=== PATIENT | female | born 1995 | race Native Hawaiian/Other Pacific Islander ===

== ENCOUNTER 2016-12-11 18:49 | Emergency (ER) | payer MEDICAID ==
[2016-12-11 21:18] LABS: Hematocrit 36.7 % (30.3-42.9); Hemoglobin 12.5 gm/dl (10.1-14.3); Mean Corpuscular HGB Conc 34 % (30-34); Mean Corpuscular Hemoglobin 30 pg (28-32); Mean Corpuscular Volume 90 fl (79-97); Platelet Count 218 K/mm3 (140-440); Red Cell Distribution Width 12.6 % (13.2-15.2); White Blood Count 11.8 K/mm3 (4.5-11.0)
[2016-12-11 21:19] LABS: Basophils % (Auto) 0.6 % (0.0-1.8); Eosinophils % (Auto) 1.6 % (0.0-4.3)
--- NOTE | 2016-12-11 22:35 | Emergency Department Report ---
HPI - General Chief Complaint: Abdominal Pain Time Seen by Provider: 12/11/16 22:21 - HPI HPI: Room 9 The pt is a 21 y/o F p/w a CC of Abd pain/ The pt is ~12 wks GA and states for ~ 2 weeks she's had intermittent pelvic cramping. The pt states approx 1 week ago she slipped and fell forward landing on her hands and knees. Pt states she did not strike her abdomen. Pt denies vag bleeding, vag d/c, dysuria or hematuria. Pt denies fever ED Past Medical Hx - Past Medical History Previous Medical History?: Yes Additional medical history: PANIC ATTACK - Surgical History Past Surgical History?: No - Family History Family history: no significant - Social History Smoking Status: Never Smoker Substance Use Type: None (denies illicit drug use) - Medications Home Medications: Home Medications Medication Instructions Recorded Confirmed Last Taken Type Hyoscyamine Subl [Levsin Sl] 0.125 mg SL Q4HR PRN #14 tablet 11/13/13 Unknown Rx Promethazine [Phenergan] 25 mg PO Q6H PRN #14 tablet 11/13/13 Unknown Rx ED Review of Systems ROS: Stated complaint: 12 WKS PREG/CRAMPING Other details as noted in HPI Comment: All other systems reviewed and negative Constitutional: denies: chills, fever Eyes: denies: eye pain, eye discharge, vision change ENT: denies: ear pain, throat pain Respiratory: denies: cough, shortness of breath, wheezing Cardiovascular: denies: chest pain, palpitations Endocrine: no symptoms reported Gastrointestinal: abdominal pain Genitourinary: denies: dysuria, hematuria, discharge, abnormal menses Musculoskeletal: denies: back pain, joint swelling, arthralgia Skin: denies: rash, lesions Neurological: denies: headache, weakness, paresthesias Psychiatric: denies: anxiety, depression Hematological/Lymphatic: denies: easy bleeding, easy bruising Physical Exam - Physical Exam Vital Signs: Vital Signs 12/11/16 19:30 Temperature 98.9 F Pulse Rate 91 H Respiratory 16 Rate Blood Pressure 116/72 O2 Sat by Pulse 99 Oximetry Physical Exam: GEN: WD, WN F lying on stretcher not appearing to be in acute distress. HEENT: normocephalic, atraumatic PULM: CTA B CV: rrr, no m/r/g ABD: s, with mild discomfort to palpation in the JOSE RAUL and SP region Neuro: GCS 15 Ext: no deformity ED Course Vital Signs 12/11/16 19:30 Temperature 98.9 F Pulse Rate 91 H Respiratory 16 Rate Blood Pressure 116/72 O2 Sat by Pulse 99 Oximetry ED Medical Decision Making - Lab Data Result diagrams: 12/11/16 21:01 Laboratory Tests 12/11/16 12/11/16 12/12/16 21:01 21:01 00:09 WBC 11.8 H RBC 4.10 Hgb 12.5 Hct 36.7 MCV 90 MCH 30 MCHC 34 RDW 12.6 L Plt Count 218 Lymph % (Auto) 28.0 [place] % (Auto) 6.9 Eos % (Auto) 1.6 Baso % (Auto) 0.6 Lymph # 3.3 [place] # 0.8 Eos # 0.2 Baso # 0.1 Seg Neutrophils % 62.9 Seg Neutrophils # 7.4 HCG, Quant 49325 H Urine Color Yellow Urine Turbidity Clear Urine pH 7.0 Ur Specific [place] 1.019 Urine Protein <15 mg/dl Urine Glucose (UA) Neg Urine Ketones Tr Urine Blood Neg Urine Nitrite Neg Urine Bilirubin Neg Urine Urobilinogen < 2.0 Ur Leukocyte Esterase Sm Urine WBC (Auto) 5.0 Urine RBC (Auto) 2.0 U Epithel Cells (Auto) 4.0 Urine Mucus Few - Radiology Data Radiology results: report reviewed (pelvic u/s), image reviewed (pelvic u/s) - Differential Diagnosis uti, subchorianic hem, Critical care attestation.: If time is entered above; I have spent that time in minutes in the direct care of this critically ill patient, excluding procedure time. ED Disposition Clinical Impression: Abdominal pain, Disposition: TO HOME OR SELFCARE Is pt being admited?: No Does the pt Need Aspirin: No Condition: Stable Instructions: Abdominal Pain (ED) Referrals: PRIMARY CARE, [Referring] - 3-5 Days Your Assistant Director, [facility] [Other] - 3-5 Days Time of Disposition: 01:38
--- NOTE | 2016-12-12 00:33 | Ultrasound Report ---
FINAL REPORT PROCEDURE: US OB \T\lt; = 14 WEEKS FETUS TECHNIQUE: Real-time transabdominal sonography of the uterus, placenta, amniotic fluid, adnexa, and fetus was performed with image documentation. Measurements were obtained to determine age/size. M-mode Doppler was used to document heartbeat. CPT 94937 HISTORY: Cramping, Recent fall COMPARISON: No prior studies are available for comparison. FINDINGS: CRL: 31 mm, which corresponds to a gestational age of: 10 weeks, 0 days. Yolk Sac: Normal. Embryonic Cardiac Activity: 152 beats per minute Gestational Sac: Normal. Amniotic fluid: Normal. Cervix: Normal. Right Ovary: Normal. Left Ovary: Normal. Estimated delivery date: 07/09/2017 Uterus and adnexa: Normal. IMPRESSION: Single live intrauterine gestation at approximately 10 weeks 0 days. EDC by US 07/09/2017
--- NOTE | 2016-12-12 00:37 | Ultrasound Report ---
FINAL REPORT PROCEDURE: Ultrasound obstetrical transabdominal and transvaginal TECHNIQUE: Real-time transabdominal and transvaginal sonography of the uterus, placenta, amniotic fluid, adnexa, and fetus was performed with image documentation. Measurements were obtained to determine age/size. M-mode Doppler was used to document heartbeat. CPT 46094VZ OB \T\lt; = 14 WEEKS FETUS Real-time transabdominal sonography of the uterus, placenta, amniotic fluid, adnexa, and fetus was performed with image documentation. Measurements were obtained to determine age/size. M-mode Doppler was used to document heartbeat. CPT 48443 HISTORY: Cramping, Recent fall COMPARISON: No prior studies are available for comparison. FINDINGS: CRL: 31 mm, which corresponds to a gestational age of: 10 weeks, 0 days. Yolk Sac: Normal. Embryonic Cardiac Activity: 152 beats per minute Gestational Sac: Normal. Amniotic fluid: Normal. Cervix: Normal. Right Ovary: Normal. Left Ovary: Normal. Estimated delivery date: 07/09/2017 Uterus and adnexa: Normal. IMPRESSION: Single live intrauterine gestation at approximately 10 weeks 0 days. EDC by US 07/09/2017
[2016-12-12 01:26] LABS: Bilirubin,Urine NEG (Negative); Blood,Urine NEG (Negative); Ketones,Urine TR mg/dL (Negative); Leukocyte Esterase,Urine SM (Negative); Mucus,Urine FEW /HPF; Nitrite,Urine NEG (Negative); Protein,Urine <15 mg/dL mg/dL (Negative); Urobilinogen,Urine < 2.0 mg/dL (<2.0)
[2016-12-12 01:52] VITALS: BP 96/56
== END 2016-12-12 01:52 | disposition home or self-care (01) ==
LOC: ED 18:49
DX: O26.891 Other specified pregnancy related conditions, first trimester (principal); R10.9 Unspecified abdominal pain; Z3A.12 12 weeks gestation of pregnancy
CPT/HCPCS: 36415; 76801; 76817; 81001; 84702; 85025

== ENCOUNTER 2017-06-10 21:07 | Inpatient (IN) | payer MEDICAID ==
[~2017-06-10 21:07] MED LIST: Fluarix Quad 2017-2018(36 MOS+ IM ONE
[2017-06-10] MEDS ORDERED: LACTATED RINGERS 1,000 ML ONE (22:05)
--- NOTE | 2017-06-10 22:08 | History and Physical Report ---
History of Present Illness Date of examination: 06/10/17 Date of admission: 06/10/17 21:07 Chief complaint: Induction of Labor History of present illness: 21yo G 1 P 0 @ 36 weeks 2 days by US here for IOL secondary to IUGR and oligo. She reports +FM and denies UCs, VB or LOF. Her care is co-managed with [facility]. Her last appt with [facility] was 06/08/17: EFW 1%, BPP 8/10 with no heart rate reactivity and ADALI of 5.83. She had a reactive NST earlier today at [facility] [employer]. Continued twice weekly surveillance was recommended by SELVIN but after consultation with Dr. Gray the decision was made to proceed with IOL. She is GBS negative. Past History Past Medical History: no pertinent history Past Surgical History: no surgical history Family/Genetic History: diabetes Social history: , lives with family - Obstetrical History Expected Date of Delivery: 07/06/17 Actual Gestation: 36 Week(s) 2 Day(s) : 1 Para: 0 Hx # Term Pregnancies: 0 Number of Pregnancies: 0 Spontaneous Abortions: 0 Induced : 0 Number of Living Children: 0 Medications and Allergies Allergies Allergy/AdvReac Type Severity Reaction Status Date / Time No Known Allergies Allergy Unverified 09/03/13 22:33 Home Medications Medication Instructions Recorded Confirmed Last Taken Type Hyoscyamine Subl [Levsin Sl] 0.125 mg SL Q4HR PRN #14 tablet 11/13/13 Unknown Rx Promethazine [Phenergan] 25 mg PO Q6H PRN #14 tablet 11/13/13 Unknown Rx Review of Systems All systems: negative - Physical Exam Cardiovascular: Regular rate, Normal S1, Normal S2, No murmurs Lungs: Positive: Clear to auscultation, Normal air movement Abdomen: Positive: normal appearance, soft Genitourinary (Female): Positive: normal external genitalia, normal perenium Vulva: both: normal Vagina: Positive: normal moisture Uterus: Positive: normal contour Anus/Rectum: Positive: normal perianal skin Extremities: Positive: normal Deep Tendon Reflex Grade: Normal +2 - Obstetrical FHR: category 1 FHR comments: baseline 140, moderate variability, 15x15 accels, no decels Uterine Contraction Monitor Mode: External Cervical Dilatation: 2.5 Cervical Effacement Percentage: 50 station: -3 Uterine Contraction Pattern: Irregular Results All other labs normal. Assessment and Plan - Patient Problems (1) IUGR (intrauterine growth restriction) Current Visit: Yes Status: Acute Plan to address problem: Admit to L&D Continuous EFM Cervidil for cervical ripening Anticipate vaginal delivery (2) Oligohydramnios Current Visit: Yes Status: Acute Qualifiers: Fetus number: single or unspecified fetus Trimester: third trimester Qualified Code(s): O41.03X0 - Oligohydramnios, third trimester, not applicable or unspecified Plan to address problem: Induction of labor (3) 36 weeks gestation of Current Visit: Yes Status: Acute (4) Encounter for induction of labor Current Visit: Yes Status: Acute
[2017-06-10] MEDS ORDERED: SUBLIMAZE IV PRN (22:20)
[2017-06-10] MEDS ORDERED: BRETHINE IVP PRN (22:20)
[2017-06-10] MEDS ORDERED: ePHEDrine SULFATE IV PRN (22:20)
[2017-06-10] MEDS ORDERED: XYLOCAINE 2% INFILTRATI ONE (22:20)
[2017-06-10] MEDS ORDERED: BRETHINE SUB-Q PRN (22:20)
[2017-06-10] MEDS ORDERED: STADOL IV PRN (22:20)
[2017-06-10] MEDS ORDERED: MINERAL OIL PO PRN (22:20)
[2017-06-10] MEDS ORDERED: CERVIDIL VG ONE (22:24)
[2017-06-10 22:56] LABS: Hematocrit 33.6 % (30.3-42.9); Hemoglobin 11.4 gm/dl (10.1-14.3); Mean Corpuscular HGB Conc 34 % (30-34); Mean Corpuscular Hemoglobin 30 pg (28-32); Mean Corpuscular Volume 90 fl (79-97); Platelet Count 143 K/mm3 (140-440); Red Blood Count 3.74 M/mm3 (3.65-5.03); Red Cell Distribution Width 13.3 % (13.2-15.2)
[2017-06-10] MEDS ORDERED: PITOCin/NS 20 UNIT/1000ML DRIP 20 UNITS/1,000 ML BAG IV SCH (23:00)
--- NOTE | 2017-06-11 08:21 | Event Note ---
Date: 06/11/17 S: Feeling a couple of contractions O: VE /-1, cervadil pushed back into vault, CAT I tracing, no UC's noted on strip A: Induction of labor for IUGR, Oligo P Pull cervadil at 1130, reassess Regular diet this am
[2017-06-11] MEDS: LACTATED RINGERS 1,000 ML IV SCH ×2 (12:25→20:03)
[2017-06-11] MEDS ORDERED: PITOCin/NS 30 UNIT/500ML 30 UNITS/500 ML BAG IV SCH (12:30)
--- NOTE | 2017-06-11 14:14 | Progress Note ---
Assessment and Plan A: IUP at 36 3/7 Weeks Category II Tracing resolved to Category I Tracing Severe IUGR Oligo GBS Negative P: AROM Internals X2 Re-start Pitocin Augmentation Amnioinfusion if deep varabile decels reoccur Closely Monitor Mother/Baby Subjective - Subjective Date of service: 06/11/17 Patient reports: movement normal Objective - Vital Signs Vital Signs: Vital Signs - 12hr 06/11/17 06/11/17 06/11/17 02:34 03:04 03:34 Temperature Pulse Rate 73 77 71 Respiratory Rate Blood Pressure 126/77 124/78 139/79 Blood Pressure [Left] O2 Sat by Pulse Oximetry 06/11/17 06/11/17 06/11/17 04:04 04:34 05:05 Temperature Pulse Rate 68 84 68 Respiratory Rate Blood Pressure 142/79 137/81 127/88 Blood Pressure [Left] O2 Sat by Pulse Oximetry 06/11/17 06/11/17 06/11/17 05:34 06:04 06:34 Temperature Pulse Rate 80 71 80 Respiratory Rate Blood Pressure 137/89 126/82 119/78 Blood Pressure [Left] O2 Sat by Pulse Oximetry 06/11/17 06/11/17 06/11/17 07:04 07:34 08:04 Temperature Pulse Rate 75 75 76 Respiratory Rate Blood Pressure 124/79 111/64 111/68 Blood Pressure [Left] O2 Sat by Pulse Oximetry 06/11/17 06/11/17 06/11/17 08:33 08:34 08:36 Temperature 96.7 F L Pulse Rate 70 73 72 Respiratory 16 Rate Blood Pressure 138/92 135/91 Blood Pressure 132/90 [Left] O2 Sat by Pulse Oximetry 06/11/17 06/11/17 06/11/17 08:37 09:04 09:34 Temperature Pulse Rate 70 86 96 H Respiratory Rate Blood Pressure 132/90 135/102 134/93 Blood Pressure [Left] O2 Sat by Pulse Oximetry 06/11/17 06/11/17 06/11/17 10:04 10:34 11:04 Temperature Pulse Rate 88 93 H 96 H Respiratory Rate Blood Pressure 127/81 117/69 119/76 Blood Pressure [Left] O2 Sat by Pulse Oximetry 06/11/17 06/11/17 06/11/17 11:36 11:40 12:06 Temperature 97.3 F L Pulse Rate 90 90 91 H Respiratory 16 Rate Blood Pressure 123/85 133/84 Blood Pressure 123/85 [Left] O2 Sat by Pulse Oximetry 06/11/17 06/11/17 06/11/17 12:34 13:34 13:43 Temperature Pulse Rate 90 96 H 95 H Respiratory Rate Blood Pressure 139/89 110/65 Blood Pressure [Left] O2 Sat by Pulse 96 Oximetry 06/11/17 06/11/17 06/11/17 13:48 13:53 13:58 Temperature Pulse Rate 95 H 119 H 94 H Respiratory Rate Blood Pressure Blood Pressure [Left] O2 Sat by Pulse 96 98 97 Oximetry 06/11/17 06/11/17 14:03 14:04 Temperature Pulse Rate 89 86 Respiratory Rate Blood Pressure 135/81 Blood Pressure [Left] O2 Sat by Pulse 98 Oximetry - Exam Breasts: normal Cardiovascular: Regular rate Lungs: Clear to auscultation, Normal air movement Abdomen: Present: normal appearance, soft, normal bowel sounds Uterus: Present: normal, firm, fundal height above umbilicus FHR: category 1, category 2 FHR comments: Currently FHR is 140s, moderate varability, -accel, -decels, CTX q 1-4mins. Prior to AROM and placement of internals x 2; FHR: 140s, moderate varability, + isolated late decels, +isolated deep varabile decels, +accels. Uterine Contraction Monitor Mode: Internal Cervical Dilatation: 3.5 (AROM of a small amount of clear fluid at 1352) Cervical Effacement Percentage: 70 station: -2 Uterine Contraction Pattern: Irregular Uterine Tone Measurement Phase: Resting Uterine Contraction Intensity: Mild Extremities: normal - Labs Labs: Abnormal Labs 06/10/17 21:40 WBC 13.2 H Laboratory Results - last 24 hr 06/10/17 06/10/17 06/10/17 21:40 21:40 21:40 WBC 13.2 H RBC 3.74 Hgb 11.4 Hct 33.6 MCV 90 MCH 30 MCHC 34 RDW 13.3 Plt Count 143 RPR Nonreactive Blood Type A POSITIVE Antibody Screen Negative
[2017-06-11] MEDS ORDERED: NACL 0.9% 1000 ML 1,000 ML VG SCH (15:00)
--- NOTE | 2017-06-11 16:56 | Progress Note ---
Assessment and Plan A: IUP at 36 3/7 Weeks Category I Tracing Severe IUGR Oligo GBS Negative P: Continue Pitocin Augmentation Closely Monitor Mother/Baby Transfer Care to Dr. Artie Mota Subjective - Subjective Date of service: 06/11/17 Patient reports: movement normal, contractions, other (Denies HAs, N&V, and visual changes) Objective - Vital Signs Vital Signs: Vital Signs - 12hr 06/11/17 06/11/17 06/11/17 05:05 05:34 06:04 Temperature Pulse Rate 68 80 71 Respiratory Rate Blood Pressure 127/88 137/89 126/82 Blood Pressure [Left] O2 Sat by Pulse Oximetry 06/11/17 06/11/17 06/11/17 06:34 07:04 07:34 Temperature Pulse Rate 80 75 75 Respiratory Rate Blood Pressure 119/78 124/79 111/64 Blood Pressure [Left] O2 Sat by Pulse Oximetry 06/11/17 06/11/17 06/11/17 08:04 08:33 08:34 Temperature 96.7 F L Pulse Rate 76 70 73 Respiratory 16 Rate Blood Pressure 111/68 138/92 Blood Pressure 132/90 [Left] O2 Sat by Pulse Oximetry 06/11/17 06/11/17 06/11/17 08:36 08:37 09:04 Temperature Pulse Rate 72 70 86 Respiratory Rate Blood Pressure 135/91 132/90 135/102 Blood Pressure [Left] O2 Sat by Pulse Oximetry 06/11/17 06/11/17 06/11/17 09:34 10:04 10:34 Temperature Pulse Rate 96 H 88 93 H Respiratory Rate Blood Pressure 134/93 127/81 117/69 Blood Pressure [Left] O2 Sat by Pulse Oximetry 06/11/17 06/11/17 06/11/17 11:04 11:36 11:40 Temperature 97.3 F L Pulse Rate 96 H 90 90 Respiratory 16 Rate Blood Pressure 119/76 123/85 Blood Pressure 123/85 [Left] O2 Sat by Pulse Oximetry 06/11/17 06/11/17 06/11/17 12:06 12:34 13:34 Temperature Pulse Rate 91 H 90 96 H Respiratory Rate Blood Pressure 133/84 139/89 110/65 Blood Pressure [Left] O2 Sat by Pulse Oximetry 06/11/17 06/11/17 06/11/17 13:43 13:48 13:53 Temperature Pulse Rate 95 H 95 H 119 H Respiratory Rate Blood Pressure Blood Pressure [Left] O2 Sat by Pulse 96 96 98 Oximetry 06/11/17 06/11/17 06/11/17 13:58 14:03 14:04 Temperature Pulse Rate 94 H 89 86 Respiratory Rate Blood Pressure 135/81 Blood Pressure [Left] O2 Sat by Pulse 97 98 Oximetry 06/11/17 06/11/17 06/11/17 14:08 14:13 14:18 Temperature Pulse Rate 88 80 88 Respiratory Rate Blood Pressure Blood Pressure [Left] O2 Sat by Pulse 99 98 99 Oximetry 06/11/17 06/11/17 06/11/17 14:23 14:28 14:33 Temperature Pulse Rate 83 88 88 Respiratory Rate Blood Pressure Blood Pressure [Left] O2 Sat by Pulse 98 99 99 Oximetry 06/11/17 06/11/17 06/11/17 14:35 14:38 14:43 Temperature Pulse Rate 75 85 76 Respiratory Rate Blood Pressure 143/85 Blood Pressure [Left] O2 Sat by Pulse 98 99 Oximetry 06/11/17 06/11/17 06/11/17 14:48 14:53 14:58 Temperature Pulse Rate 78 90 77 Respiratory Rate Blood Pressure Blood Pressure [Left] O2 Sat by Pulse 98 99 99 Oximetry 06/11/17 06/11/17 06/11/17 15:03 15:06 15:08 Temperature Pulse Rate 91 H 80 75 Respiratory Rate Blood Pressure 146/84 Blood Pressure [Left] O2 Sat by Pulse 99 98 Oximetry 06/11/17 06/11/17 06/11/17 15:13 15:18 15:23 Temperature Pulse Rate 88 79 71 Respiratory Rate Blood Pressure Blood Pressure [Left] O2 Sat by Pulse 98 98 98 Oximetry 06/11/17 06/11/17 06/11/17 15:28 15:33 15:35 Temperature Pulse Rate 73 73 68 Respiratory Rate Blood Pressure 161/93 Blood Pressure [Left] O2 Sat by Pulse 98 99 Oximetry 06/11/17 06/11/17 06/11/17 15:38 15:43 15:48 Temperature Pulse Rate 70 70 76 Respiratory Rate Blood Pressure Blood Pressure [Left] O2 Sat by Pulse 98 98 98 Oximetry 06/11/17 06/11/17 06/11/17 15:53 15:58 16:03 Temperature Pulse Rate 73 67 72 Respiratory Rate Blood Pressure Blood Pressure [Left] O2 Sat by Pulse 99 100 99 Oximetry 06/11/17 06/11/17 06/11/17 16:04 16:08 16:13 Temperature Pulse Rate 76 67 69 Respiratory Rate Blood Pressure 143/94 Blood Pressure [Left] O2 Sat by Pulse 99 99 Oximetry 06/11/17 06/11/17 06/11/17 16:18 16:23 16:28 Temperature Pulse Rate 78 71 80 Respiratory Rate Blood Pressure Blood Pressure [Left] O2 Sat by Pulse 100 99 99 Oximetry 06/11/17 06/11/17 06/11/17 16:33 16:34 16:38 Temperature Pulse Rate 70 71 69 Respiratory Rate Blood Pressure 137/86 Blood Pressure [Left] O2 Sat by Pulse 99 99 Oximetry 06/11/17 06/11/17 06/11/17 16:43 16:48 16:53 Temperature Pulse Rate 69 73 90 Respiratory Rate Blood Pressure Blood Pressure [Left] O2 Sat by Pulse 99 98 98 Oximetry - Exam Breasts: normal Cardiovascular: Regular rate Lungs: Clear to auscultation, Normal air movement Abdomen: Present: normal appearance, soft, normal bowel sounds Uterus: Present: normal, firm, fundal height above umbilicus FHR: category 1 Uterine Contraction Monitor Mode: Internal Cervical Dilatation: 5 Cervical Effacement Percentage: 70 station: -2 Uterine Contraction Frequency (min): 1-4 Uterine Contraction Pattern: Irregular Uterine Tone Measurement Phase: Resting Uterine Contraction Intensity: Mild Extremities: normal - Labs Labs: Abnormal Labs 06/10/17 21:40 WBC 13.2 H Laboratory Results - last 24 hr 06/10/17 06/10/17 06/10/17 21:40 21:40 21:40 WBC 13.2 H RBC 3.74 Hgb 11.4 Hct 33.6 MCV 90 MCH 30 MCHC 34 RDW 13.3 Plt Count 143 RPR Nonreactive Blood Type A POSITIVE Antibody Screen Negative
[2017-06-11] MEDS ORDERED: BICITRA PO ONE (20:47)
[2017-06-11] MEDS ORDERED: PEPCID IV ONE (20:47)
[2017-06-11] MEDS ORDERED: REGLAN IV ONE (20:47)
--- NOTE | 2017-06-11 20:51 | Progress Note ---
Assessment and Plan - Patient Problems (1) 36 weeks gestation of Onset Date: 06/11/17 Current Visit: Yes Status: Acute Plan to address problem: A: IUP @ 36 2/7 weeks Severe IUGR Oligohydramnios Cat 2 tracing P: Will proceed with a C Section MEENA. (2) Encounter for induction of labor Onset Date: 06/11/17 Current Visit: Yes Status: Acute (3) IUGR (intrauterine growth restriction) Onset Date: 06/11/17 Current Visit: Yes Status: Acute (4) Oligohydramnios Onset Date: 06/11/17 Current Visit: Yes Status: Acute Qualifiers: Fetus number: single or unspecified fetus Trimester: third trimester Qualified Code(s): O41.03X0 - Oligohydramnios, third trimester, not applicable or unspecified Subjective - Subjective Date of service: 06/11/17 Principal diagnosis: IUP @ 36 2/7 weeks; Severe IUGR; Oligo Interval history: Pt is a 21yo G 1 P 0 @ 36 weeks 2 days by US here for IOL secondary to IUGR and oligo. She reports +FM and denies UCs, VB or LOF. Her care is co- managed with SELVIN. Her last appt with [facility] was 06/08/17: EFW 1%, BPP 8/10 with no heart rate reactivity and ADALI of 5.83. She had a reactive NST earlier today at [facility]. Continued twice weekly surveillance was recommended by SELVIN but after consultation with Dr. Gray the decision was made to proceed with IOL. She is GBS negative. She received cervidel followed by pitocin for induction, but developed a Cat 2 tracing. Pitocin was restarted after heart rate recovery, but again developed late decelerations with no cervical change in 4 hours. Discussed with pt and her family, that she will need a C Section for delivery due to Non- reassuring surveillance - they are in agreement, but declines blood products. Patient reports: movement normal, contractions, other, no new complaints, no vaginal bleeding Objective - Vital Signs Vital Signs: Vital Signs - 12hr 06/11/17 06/11/17 06/11/17 09:04 09:34 10:04 Temperature Pulse Rate 86 96 H 88 Respiratory Rate Blood Pressure 135/102 134/93 127/81 Blood Pressure [Left] O2 Sat by Pulse Oximetry 06/11/17 06/11/17 06/11/17 10:34 11:04 11:36 Temperature 97.3 F L Pulse Rate 93 H 96 H 90 Respiratory 16 Rate Blood Pressure 117/69 119/76 Blood Pressure 123/85 [Left] O2 Sat by Pulse Oximetry 06/11/17 06/11/17 06/11/17 11:40 12:06 12:34 Temperature Pulse Rate 90 91 H 90 Respiratory Rate Blood Pressure 123/85 133/84 139/89 Blood Pressure [Left] O2 Sat by Pulse Oximetry 06/11/17 06/11/17 06/11/17 13:34 13:43 13:48 Temperature Pulse Rate 96 H 95 H 95 H Respiratory Rate Blood Pressure 110/65 Blood Pressure [Left] O2 Sat by Pulse 96 96 Oximetry 06/11/17 06/11/17 06/11/17 13:53 13:58 14:03 Temperature Pulse Rate 119 H 94 H 89 Respiratory Rate Blood Pressure Blood Pressure [Left] O2 Sat by Pulse 98 97 98 Oximetry 06/11/17 06/11/17 06/11/17 14:04 14:08 14:13 Temperature Pulse Rate 86 88 80 Respiratory Rate Blood Pressure 135/81 Blood Pressure [Left] O2 Sat by Pulse 99 98 Oximetry 06/11/17 06/11/17 06/11/17 14:18 14:23 14:28 Temperature Pulse Rate 88 83 88 Respiratory Rate Blood Pressure Blood Pressure [Left] O2 Sat by Pulse 99 98 99 Oximetry 06/11/17 06/11/17 06/11/17 14:33 14:35 14:38 Temperature Pulse Rate 88 75 85 Respiratory Rate Blood Pressure 143/85 Blood Pressure [Left] O2 Sat by Pulse 99 98 Oximetry 06/11/17 06/11/17 06/11/17 14:43 14:48 14:53 Temperature Pulse Rate 76 78 90 Respiratory Rate Blood Pressure Blood Pressure [Left] O2 Sat by Pulse 99 98 99 Oximetry 06/11/17 06/11/17 06/11/17 14:58 15:03 15:06 Temperature Pulse Rate 77 91 H 80 Respiratory Rate Blood Pressure 146/84 Blood Pressure [Left] O2 Sat by Pulse 99 99 Oximetry 06/11/17 06/11/17 06/11/17 15:08 15:13 15:18 Temperature Pulse Rate 75 88 79 Respiratory Rate Blood Pressure Blood Pressure [Left] O2 Sat by Pulse 98 98 98 Oximetry 06/11/17 06/11/17 06/11/17 15:23 15:28 15:33 Temperature Pulse Rate 71 73 73 Respiratory Rate Blood Pressure Blood Pressure [Left] O2 Sat by Pulse 98 98 99 Oximetry 06/11/17 06/11/17 06/11/17 15:35 15:38 15:43 Temperature Pulse Rate 68 70 70 Respiratory Rate Blood Pressure 161/93 Blood Pressure [Left] O2 Sat by Pulse 98 98 Oximetry 06/11/17 06/11/17 06/11/17 15:48 15:53 15:58 Temperature Pulse Rate 76 73 67 Respiratory Rate Blood Pressure Blood Pressure [Left] O2 Sat by Pulse 98 99 100 Oximetry 06/11/17 06/11/17 06/11/17 16:03 16:04 16:08 Temperature Pulse Rate 72 76 67 Respiratory Rate Blood Pressure 143/94 Blood Pressure [Left] O2 Sat by Pulse 99 99 Oximetry 06/11/17 06/11/17 06/11/17 16:13 16:18 16:23 Temperature Pulse Rate 69 78 71 Respiratory Rate Blood Pressure Blood Pressure [Left] O2 Sat by Pulse 99 100 99 Oximetry 06/11/17 06/11/17 06/11/17 16:28 16:33 16:34 Temperature Pulse Rate 80 70 71 Respiratory Rate Blood Pressure 137/86 Blood Pressure [Left] O2 Sat by Pulse 99 99 Oximetry 06/11/17 06/11/17 06/11/17 16:38 16:43 16:48 Temperature Pulse Rate 69 69 73 Respiratory Rate Blood Pressure Blood Pressure [Left] O2 Sat by Pulse 99 99 98 Oximetry 06/11/17 06/11/17 06/11/17 16:53 16:58 17:03 Temperature Pulse Rate 90 79 74 Respiratory Rate Blood Pressure Blood Pressure [Left] O2 Sat by Pulse 98 99 99 Oximetry 06/11/17 06/11/17 06/11/17 17:04 17:08 17:13 Temperature Pulse Rate 71 70 74 Respiratory Rate Blood Pressure 137/84 Blood Pressure [Left] O2 Sat by Pulse 98 98 Oximetry 06/11/17 06/11/17 06/11/17 17:18 17:23 17:28 Temperature Pulse Rate 71 76 77 Respiratory Rate Blood Pressure Blood Pressure [Left] O2 Sat by Pulse 98 98 98 Oximetry 06/11/17 06/11/17 06/11/17 17:33 17:34 17:38 Temperature Pulse Rate 69 65 72 Respiratory Rate Blood Pressure 147/87 Blood Pressure [Left] O2 Sat by Pulse 98 98 Oximetry 06/11/17 06/11/17 06/11/17 17:43 17:48 17:53 Temperature Pulse Rate 74 63 68 Respiratory Rate Blood Pressure Blood Pressure [Left] O2 Sat by Pulse 100 99 98 Oximetry 06/11/17 06/11/17 06/11/17 17:58 18:03 18:06 Temperature Pulse Rate 66 71 64 Respiratory Rate Blood Pressure 157/85 Blood Pressure [Left] O2 Sat by Pulse 97 98 Oximetry 06/11/17 06/11/17 06/11/17 18:08 18:13 18:18 Temperature Pulse Rate 66 88 74 Respiratory Rate Blood Pressure Blood Pressure [Left] O2 Sat by Pulse 98 99 98 Oximetry 06/11/17 06/11/17 06/11/17 18:23 18:28 18:33 Temperature Pulse Rate 64 67 74 Respiratory Rate Blood Pressure Blood Pressure [Left] O2 Sat by Pulse 98 99 99 Oximetry 06/11/17 06/11/17 06/11/17 18:36 18:38 18:43 Temperature Pulse Rate 64 66 69 Respiratory Rate Blood Pressure 146/78 Blood Pressure [Left] O2 Sat by Pulse 99 99 Oximetry 06/11/17 06/11/17 06/11/17 18:48 18:53 18:58 Temperature Pulse Rate 76 64 69 Respiratory Rate Blood Pressure Blood Pressure [Left] O2 Sat by Pulse 99 99 100 Oximetry 06/11/17 06/11/17 06/11/17 19:03 19:05 19:08 Temperature Pulse Rate 68 60 79 Respiratory Rate Blood Pressure 165/96 Blood Pressure [Left] O2 Sat by Pulse 99 98 Oximetry 06/11/17 06/11/17 06/11/17 19:09 19:13 19:18 Temperature 98.3 F Pulse Rate 71 70 82 Respiratory 18 Rate Blood Pressure Blood Pressure 140/83 [Left] O2 Sat by Pulse 96 98 97 Oximetry 06/11/17 06/11/17 06/11/17 19:23 19:28 19:33 Temperature Pulse Rate 71 78 81 Respiratory Rate Blood Pressure 140/83 Blood Pressure [Left] O2 Sat by Pulse 96 97 97 Oximetry 06/11/17 06/11/17 06/11/17 19:35 19:38 19:43 Temperature Pulse Rate 71 82 69 Respiratory Rate Blood Pressure 149/91 Blood Pressure [Left] O2 Sat by Pulse 98 98 Oximetry 06/11/17 06/11/17 06/11/17 19:48 19:53 19:58 Temperature Pulse Rate 73 72 80 Respiratory Rate Blood Pressure Blood Pressure [Left] O2 Sat by Pulse 97 97 97 Oximetry 06/11/17 06/11/17 06/11/17 20:03 20:08 20:13 Temperature Pulse Rate 75 76 70 Respiratory Rate Blood Pressure Blood Pressure [Left] O2 Sat by Pulse 97 97 97 Oximetry 06/11/17 06/11/17 06/11/17 20:18 20:23 20:28 Temperature Pulse Rate 85 70 77 Respiratory Rate Blood Pressure Blood Pressure [Left] O2 Sat by Pulse 96 97 97 Oximetry 06/11/17 06/11/17 06/11/17 20:31 20:33 20:36 Temperature Pulse Rate 91 H 83 77 Respiratory Rate Blood Pressure 149/85 Blood Pressure [Left] O2 Sat by Pulse 89 99 Oximetry 06/11/17 06/11/17 06/11/17 20:38 20:43 20:48 Temperature Pulse Rate 78 74 93 H Respiratory Rate Blood Pressure Blood Pressure [Left] O2 Sat by Pulse 98 99 99 Oximetry 06/11/17 20:53 Temperature Pulse Rate 99 H Respiratory Rate Blood Pressure Blood Pressure [Left] O2 Sat by Pulse 99 Oximetry - Exam FHR: category 2 Uterine Contraction Monitor Mode: Internal Cervical Dilatation: 5 Cervical Effacement Percentage: 70 station: -2 Uterine Contraction Pattern: Regular Uterine Tone Measurement Phase: Contraction Uterine Contraction Intensity: Moderate - Labs Labs: Abnormal Labs 06/10/17 21:40 WBC 13.2 H Laboratory Results - last 24 hr 06/10/17 06/10/17 06/10/17 21:40 21:40 21:40 WBC 13.2 H RBC 3.74 Hgb 11.4 Hct 33.6 MCV 90 MCH 30 MCHC 34 RDW 13.3 Plt Count 143 RPR Nonreactive Blood Type A POSITIVE Antibody Screen Negative
[2017-06-11] MEDS ORDERED: ASTRAMORPH PF 10MG/10ML ONE (20:55)
[2017-06-11] MEDS ORDERED: LACTATED RINGERS 1,000 ML IV SCH (21:00)
[2017-06-11] MEDS ORDERED: ANCEF/STERILE WATER 2 GM/20 ML 2 GM/20 ML SYRINGE IV NR (21:00)
[2017-06-11] MEDS ORDERED: PITOCin/NS 20 UNIT/1000ML DRIP 20 UNITS/1,000 ML BAG IV SCH ×2 (21:00→23:00)
--- NOTE | 2017-06-11 21:12 | Anesthesia Consultation ---
Anesthesia Consult and Med Hx - Airway Anesthetic Teeth Evaluation: Good ROM Head & Neck: Adequate Mental/Hyoid Distance: Adequate Mallampati Class: Class II Intubation Access Assessment: Good - Pulmonary Exam CTA: Yes - Cardiac Exam Cardiac Exam: RRR - Pre-Operative Health Status ASA Pre-Surgery Classification: ASA2, Emergency Proposed Anesthetic Plan: Spinal - Pulmonary Hx Asthma: No COPD: No Hx Pneumonia: No - Cardiovascular System Hx Hypertension: No - Central Nervous System Hx Seizures: No Hx Psychiatric Problems: No - Endocrine Hx Renal Disease: No Hx End Stage Renal Disease: No Hx Hypothyroidism: No Hx Hyperthyroidism: No - Hematic Hx Anemia: No Hx Sickle Cell Disease: No - Other Systems Hx Alcohol Use: No
[2017-06-11] MEDS ORDERED: NARCAN 0.4 MG/1 ML IV PRN ×2 (21:13→22:25)
[2017-06-11] MEDS ORDERED: DILAUDID IV PRN (21:13)
[2017-06-11] MEDS ORDERED: PHENERGAN PO PRN (21:13)
[2017-06-11] MEDS ORDERED: NUBAIN IV PRN (21:13)
[2017-06-11] MEDS ORDERED: PHENERGAN PR PRN (21:13)
[2017-06-11] MEDS ORDERED: ZOFRAN IV PRN (21:13)
[2017-06-11] MEDS ORDERED: BENADRYL IV PRN (21:13)
--- NOTE | 2017-06-11 21:13 | Anesthesia Day of Surgery ---
Anesthesia Day of Surgery - Day of Surgery Patient Examined: Yes Patient H&P Reviewed: Yes Patient is NPO: No (11am)
[2017-06-11] MEDS ORDERED: WATER FOR IRRIG STERILE IR ONE (21:25)
[2017-06-11] MEDS ORDERED: NACL 0.9% IR ONE (21:25)
[2017-06-11] MEDS ORDERED: ANCEF/STERILE WATER 2 GM/20 ML IV ONE (21:34)
[2017-06-11] MEDS ORDERED: ZOFRAN ONE (21:52)
[2017-06-11] MEDS ORDERED: TORADOL ONE (21:52)
[2017-06-11] MEDS ORDERED: SODIUM CHLORIDE FLUSH SYRINGE 10 ML IV PRN (22:00)
--- NOTE | 2017-06-11 22:24 | Operative Report ---
Operative Report Operative Report: Date of procedure: 06/11/2017 Pre-operative diagnosis: 1. Intrauterine at 36-2/7 weeks 2. Severe IUGR 3. Oligohydramnios 4. Non-reassuring surveillance Post-operative diagnosis: Same Procedure name(s): Primary low transverse section Surgeon: Severiano Mota MD Windscreen Fitter: None Anesthesia: Spinal anesthesia by EBL: 600 mL's Findings: A 1625 g male infant Apgars 8 at 1 minute and 9 at 5 minutes. Tight nuchal cord 1. Short umbilical cord. Normal uterus. Normal tubes and ovaries bilaterally. Procedure: After the patient was prepped and draped in usual sterile fashion, and after satisfactory level of epidural anesthesia was obtained, the skin knife was used to make a transverse skin incision. The incision was excised down to layer of the fascia, which was nicked in the midline and extended laterally using the Bovie cautery. The rectus muscles were dissected off the rectus fascia both superiorly and inferiorly. The rectus bellies in the midline, and the peritoneum was entered under direct visualization. The peritoneal incision was extended superiorly and inferiorly. A bladder flap was created and the bladder blade was then placed. The uterus was scored in a curvilinear linear fashion, entered in the midline revealing clear amniotic fluid. The infant's head was delivered onto the surgical field, nuchal cord 1 reduced and the oropharynx and nasopharynx were bulb suctioned. The rest of the 's body was delivered, the short cord was doubly clamped and cut and the was handed to the waiting respiratory team. Cord blood was then obtained. The placenta was manually removed from the uterus, and the uterus removed from its normal anatomical position. After gentle uterine lavage, the incision was inspected and found to be without extensions. It was then closed in 2 layers using 0 Vicryl suture in a running interlocking fashion, the second layer imbricating the first. After good hemostasis was achieved, copious amounts or irrigation was performed, and the gutters were suctioned free of blood and blood clots. Tisseel sealant was sprayed across the uterine incision. The uterus was then returned to its normal anatomical position, and after excellent hemostasis assured, the peritoneum was re-approximated using 3- 0 Vicryl suture in a running interlocking fashion, and then the rectus muscles were re-approximated using 3-0 Vicryl suture in a [id number] configuration. The fascia was then re-approximated using 0 Vicryl suture in running interlocking fashion. The subcutaneous layer was made hemostatic using Bovie cautery, the Tisseel sealant was sprayed across the fascial incision and the skin edges re-approximated using 4-0 Vicryl suture in a sub-cuticular fashion. Patient tolerated the procedure well was transported to recovery in stable condition.
[2017-06-11] MEDS ORDERED: TYLENOL PO PRN (22:25)
[2017-06-11] MEDS ORDERED: MYLICON PO PRN (22:25)
[2017-06-11] MEDS ORDERED: MILK OF MAGNESIA PO PRN (22:25)
[2017-06-11] MEDS ORDERED: SENOKOT PO PRN (22:25)
[2017-06-11] MEDS ORDERED: TUCKS PAD TP PRN (22:25)
[2017-06-11] MEDS ORDERED: LANSINOH TP PRN (22:25)
[2017-06-11] MEDS ORDERED: NORCO 5/325 PO PRN (22:25)
[2017-06-11] MEDS ORDERED: ANCEF/NS 1 GM/50 ML 1 GM/50 ML BAG IV SCH (23:00)
[2017-06-11] MEDS ORDERED: SODIUM CHLORIDE FLUSH SYRINGE 10 ML IV NR (23:00)
[2017-06-12] MEDS: D5LR 1,000 ML IV SCH ×2 (03:05→10:23)
[2017-06-12] MEDS: TORADOL IV PRN ×2 (06:58→15:30)
[2017-06-12] MEDS: ceFAZolin 1 GM in NACL 0.9% 20 ML IV SCH ×2 (07:00→15:15)
--- NOTE | 2017-06-12 09:12 | Progress Note ---
Assessment and Plan A: Post-op Day 1, Stable Pumping, Baby in NICU P: Continue routine post-op orders Subjective - Subjective Date of service: 06/12/17 Principal diagnosis: IUP @ 36 2/7 weeks; Severe IUGR; Oligo Patient reports: appetite normal, pain well controlled, flatus [place]: doing well (1625g male. Mom to start pumping.), in NICU Objective - Vital Signs Latest vital signs: Vital Signs Temp Pulse Resp BP BP Pulse Ox 06/11/17 23:30 74 16 120/78 96 06/11/17 23:25 77 15 107/71 98 06/11/17 23:20 68 13 108/66 97 06/11/17 23:15 68 16 104/69 97 06/11/17 23:10 70 17 114/70 97 06/11/17 23:05 67 17 107/72 96 06/11/17 23:02 98.3 F 06/11/17 23:00 66 17 113/74 96 06/11/17 22:55 65 9 L 112/67 99 06/11/17 22:50 64 16 111/62 97 06/11/17 22:45 67 16 108/60 99 06/11/17 22:40 76 19 110/66 100 06/11/17 22:35 78 17 120/69 100 06/11/17 22:32 83 16 100 06/11/17 22:30 97.9 F 06/11/17 21:18 91 H 96 06/11/17 21:13 97 H 97 06/11/17 21:08 111 H 98 06/11/17 21:03 85 100 06/11/17 20:58 93 H 99 06/11/17 20:53 99 H 99 06/11/17 20:48 93 H 99 06/11/17 20:43 74 99 06/11/17 20:38 78 98 06/11/17 20:36 77 149/85 06/11/17 20:33 83 99 06/11/17 20:31 91 H 89 06/11/17 20:28 77 97 06/11/17 20:23 70 97 06/11/17 20:18 85 96 06/11/17 20:13 70 97 06/11/17 20:08 76 97 06/11/17 20:03 75 97 06/11/17 19:58 80 97 03//18 19:53 72 97 03//18 19:48 73 97 03//18 19:43 69 98 03/18 19:38 82 98 03//18 19:35 71 149/91 03/18 19:33 81 97 03//18 19:28 78 97 //18 19:23 71 140/83 96 //18 19:18 82 97 03//18 19:13 70 98 /18 19:09 98.3 F 71 18 140/83 96 18 19:08 79 98 03/18 19:05 60 165/96 06/11/17 19:03 68 99 0318 18:58 69 100 18 18:53 64 99 18 18:48 76 99 18 18:43 69 99 18 18:38 66 99 18 18:36 64 146/78 18 18:33 74 99 18 18:28 67 99 03/18 18:23 64 98 03/18 18:18 74 98 03/18 18:13 88 99 18 18:08 66 98 0318 18:06 64 157/85 06/11/17 18:03 71 98 18 17:58 66 97 /18 17:53 68 98 /18 17:48 63 99 /18 17:43 74 100 18 17:38 72 98 18 17:34 65 147/87 18 17:33 69 98 03//18 17:28 77 98 03/18 17:23 76 98 03/18 17:18 71 98 18 17:13 74 98 03/18 17:08 70 98 03//18 17:04 71 137/84 0318 17:03 74 99 03//18 16:58 79 99 03/18 16:53 90 98 03/18 16:48 73 98 03/18 16:43 69 99 0318 16:38 69 99 03/01/18 16:34 71 137/86 0318 16:33 70 99 /18 16:28 80 99 06/11/17 16:23 71 99 06/11/17 16:18 78 100 06/11/17 16:13 69 99 18 16:08 67 99 06/11/17 16:04 76 143/94 06/11/17 16:03 72 99 06/11/17 15:58 67 100 06/11/17 15:53 73 99 06/11/17 15:48 76 98 06/11/17 15:43 70 98 06/11/17 15:38 70 98 06/11/17 15:35 68 161/93 06/11/17 15:33 73 99 06/11/17 15:28 73 98 06/11/17 15:23 71 98 06/11/17 15:18 79 98 06/11/17 15:13 88 98 06/11/17 15:08 75 98 06/11/17 15:06 80 146/84 06/11/17 15:03 91 H 99 06/11/17 14:58 77 99 06/11/17 14:53 90 99 06/11/17 14:48 78 98 06/11/17 14:43 76 99 06/11/17 14:38 85 98 06/11/17 14:35 75 143/85 06/11/17 14:33 88 99 06/11/17 14:28 88 99 06/11/17 14:23 83 98 06/11/17 14:18 88 99 06/11/17 14:13 80 98 06/11/17 14:08 88 99 06/11/17 14:04 86 135/81 06/11/17 14:03 89 98 06/11/17 13:58 94 H 97 06/11/17 13:53 119 H 98 06/11/17 13:48 95 H 96 06/11/17 13:43 95 H 96 06/11/17 13:34 96 H 110/65 0318 12:34 90 139/89 06/11/17 12:06 91 H 133/84 18 11:40 90 123/85 18 11:36 97.3 F L 90 16 123/85 06/11/17 11:04 96 H 119/76 03/18 10:34 93 H 117/69 06/11/17 10:04 88 127/81 06/11/17 09:34 96 H 134/93 Intake and Output 06/11/17 06/12/17 06/12/17 23:59 07:59 15:59 Intake Total 2854.167 Output Total 215 Balance 2639.167 Intake: IV 2854.167 Lactated Ringers 1,000 ml 954.167 @ 125 mls/hr IV DIRECT YOON Rx#:[id number] PITOCin/NS 30 UNIT/500ML 0 30 units In 500 ml @ 4 mls/hr IV TITR YOON Rx#: [id number] Output: Urine 215 Other: # Voids Void 1 Estimated Blood Loss 600 - Exam Breasts: Present: normal Cardiovascular: Present: Regular rate Lungs: Present: Clear to auscultation Abdomen: Present: normal appearance, soft Vulva: both: normal (mild edema, ice pack given) Uterus: Present: normal, firm, fundal height below umbilicus Extremities: Present: normal Deep Tendon Reflex Grade: Normal +2 Incision: Present: normal, dressed
[2017-06-12] MEDS: PRENATAL VITAMIN PO SCH (10:24)
[2017-06-12] MEDS: FEOSOL PO SCH (10:24)
[2017-06-12 10:35] LABS: Hematocrit 31.3 % (30.3-42.9); Hemoglobin 10.6 gm/dl (10.1-14.3)
[2017-06-12] MEDS ORDERED: M-M-R II VACCINE SUB-Q ONE (22:27)
[2017-06-13] MEDS: MOTRIN PO PRN ×2 (02:17→21:20)
[2017-06-13] MEDS: NORMODYNE PO SCH ×3 (02:18→21:20)
[2017-06-13] MEDS ORDERED: BOOSTRIX IM ONE (06:00)
[2017-06-13] MEDS: FEOSOL PO SCH (10:09)
[2017-06-13] MEDS: PRENATAL VITAMIN PO SCH (10:10)
[2017-06-13] MEDS: PERCOCET 5/325 PO PRN (10:11)
--- NOTE | 2017-06-13 11:55 | Event Note ---
Date: 06/13/17 Patient not in her room, currently a NICU seen her infant. Had elevated blood pressure last night, started on labetalol 100 mg twice a day with improvement. No other issues or complaints doing well. Will continue routine post-op care for now.
[2017-06-14] MEDS: PERCOCET 5/325 PO PRN ×3 (00:13→13:09)
[2017-06-14] MEDS: NORMODYNE PO SCH (09:11)
[2017-06-14] MEDS: FEOSOL PO SCH (09:11)
[2017-06-14] MEDS: PRENATAL VITAMIN PO SCH (09:12)
--- NOTE | 2017-06-14 10:41 | Progress Note ---
Assessment and Plan A: Post-op day 3, Stable Hypertension, well-controlled on labetalol 100mg BID Baby in NICU, pumping P: Routine post-op orders Continue labetalol 100mg BID, Rx sent to patient's pharmacy Continue pumping, bring expressed milk to NICU Discharge today Subjective - Subjective Date of service: 06/14/17 Principal diagnosis: IUP @ 36 2/7 weeks; Severe IUGR; Oligo Patient reports: appetite normal, voiding normally, pain well controlled, bowel movement, ambulating normally [place]: in NICU, bottle feeding (mom is pumping) Objective - Vital Signs Latest vital signs: Vital Signs Temp Pulse Resp BP BP Pulse Ox 06/14/17 07:29 97.7 F 75 16 116/76 95 06/14/17 04:01 97.6 F 89 18 119/73 06/14/17 01:41 98.6 F 86 18 132/81 06/13/17 21:20 84 135/88 06/13/17 20:00 98.6 F 97 H 22 110/65 06/13/17 18:09 98.3 F 104 H 20 136/82 06/13/17 16:20 98.3 F 118 H 20 147/88 Intake and Output 06/13/17 06/14/17 06/14/17 23:59 07:59 15:59 Intake Total 360 360 360 Balance 360 360 360 Intake: Oral 360 Intake, Free Water 360 360 Other: Total, Intake Amount 360 # Voids Void 3 1 1 # Bowel Movements 1 - Exam Breasts: Present: deferred Cardiovascular: Present: Regular rate Lungs: Present: Clear to auscultation Abdomen: Present: normal appearance, soft Vulva: both: normal Uterus: Present: normal, firm, fundal height below umbilicus Extremities: Present: normal Deep Tendon Reflex Grade: Normal +2 Incision: Present: normal, dry, intact
--- NOTE | 2017-06-14 10:50 | Discharge Summary ---
Providers - Providers Date of Admission: 06/10/17 21:07 Date of discharge: 06/14/17 Attending physician: CODY LUJAN MD Primary care physician: CODY LUJAN MD Hospitalization Reason for admission: IUP - , induction of labor (severe IUGR and oligohydramnios at 36w2d) Delivery: Procedure: section, primary low transverse (non-reassuring FHT's) Episiotomy: none Laceration: none Incision: normal, dry, intact Other procedures: none complications: other (Hypertension) Discharge diagnosis: delivery Kinder baby: male (in NICU, birthweight 1625g) Condition at discharge: Good Disposition: [id number] TO HOME OR SELFCARE Plan - Discharge Medications Prescriptions: Ferrous Sulfate [Feosol 325 MG tab] 325 mg PO BID #60 tablet HYDROcodone/APAP 5-325 [[place] 5/325] 1 each PO Q6HR PRN #30 tablet PRN Reason: Pain Ibuprofen [Motrin] 800 mg PO Q8HR PRN #30 tablet PRN Reason: Moder Pain Unrelieved By [place] Labetalol [Normodyne TAB] 100 mg PO BID #60 tablet Vit Calc,Iron,Folic [ Vitamins] 1 each PO DAILY #30 tablet - Provider Discharge Summary Activity: routine, no sex for 6 weeks, no heavy lifting 4 weeks, no strenuous exercise Diet: routine Instructions: routine Additional instructions: [] Smoking cessation referral if applicable(refer to patient education folder for contact #) [] Refer to [facility]'s [facility] Booklet Call your doctor immediately for: * Fever > 100.5 * Heavy vaginal bleeding ( >1 pad per hour) * Severe persistent headache * Shortness of breath * Reddened, hot, painful area to leg or breast * Drainage or odor from incision. * Keep incision clean and dry at all times and follow doctor's instructions regarding bathing/showering - Follow up plan Follow up: CODY LUJAN MD [Primary Care Provider] - 14 Days
[2017-06-14 12:10] VITALS: BP 126/71
[2017-06-14] MEDS: MOTRIN PO PRN (13:07)
[2017-06-14] MEDS ORDERED: M-M-R II VACCINE SUB-Q ONE (14:15)
== END 2017-06-14 15:00 | disposition home or self-care (01) | DRG 765 ==
LOC: LD 21:07 → OB 06-12 00:03
PROVIDERS: ADMIT Obstetrics & Gynecology; ATTEND Obstetrics & Gynecology
PROC: 10D00Z1 Extraction of Products of Conception, Low, Open Approach (ICD-10-PCS; principal; 2017-06-11)
PROC: 3E0P7VZ Introduction of Hormone into Female Reproductive, Via Natural or Artificial Opening (ICD-10-PCS; 2017-06-11)
PROC: 3E0234Z Introduction of Serum, Toxoid and Vaccine into Muscle, Percutaneous Approach (ICD-10-PCS; 2017-06-11)
DX: O69.1XX0 Labor and delivery complicated by cord around neck, with compression, not applicable or unspecified (principal); O41.03X0 Oligohydramnios, third trimester, not applicable or unspecified; O36.5930 Maternal care for other known or suspected poor fetal growth, third trimester, not applicable or unspecified; Z3A.36 36 weeks gestation of pregnancy; O76 Abnormality in fetal heart rate and rhythm complicating labor and delivery; Z83.3 Family history of diabetes mellitus; Z23 Encounter for immunization; O16.5 Unspecified maternal hypertension, complicating the puerperium
CPT/HCPCS: 36415; 85014; 85018; 85027; 86592; 86850; 86900; 86901; 88307; 90471; 90686; 90715; 99211; C9250; G0463; J0595; J0690; J1200; J1885; J2274; J2405; J2590; J2765; J7120; J7121